=== PATIENT | male | born 1960 | race African-American/Black ===

== ENCOUNTER 2019-05-18 04:43 | Emergency (ER) | payer SELFPAY ==
[~2019-05-18] VITALS: Ht 188 cm; Wt 90.7 kg
--- NOTE | 2019-05-18 04:45 | NUR ---
TO BED 2 BIB PARAMEDICS C/O ABDOMINAL PAIN WITH N/V SINCE MIDNIGHT. PT AAOX4 NO ACUTE DISTRESS NOTED, RESP EVEN AND UNLABORED. PLACE PT ON CONTINUOUS POX, O2@2L/NC. PENDING ER MD [place].
--- NOTE | 2019-05-18 04:47 | NUR ---
ER MD AT BEDSIDE TO EVAL PT WITH ORDERS RECEIVED.
[2019-05-18] MEDS ORDERED: ONDANSETRON HCL/PF 4 MG/2 ML VIAL ONE (04:58)
[2019-05-18] MEDS ORDERED: MORPHINE SULFATE INJ 4 MG/ML DISP.SYRIN ONE (04:58)
[2019-05-18] MEDS ORDERED: ONDANSETRON HCL/PF 4 MG/2 ML VIAL IVP ONE (05:00)
[2019-05-18] MEDS ORDERED: MORPHINE SULFATE INJ 2 MG/ML DISP.SYRIN IV ONE (05:00)
[2019-05-18] MEDS ORDERED: IV NS 0.9% 1,000 ML BAG IV ONE ×2 (05:00→06:00)
--- NOTE | 2019-05-18 05:00 | NUR ---
ADDENDUM: Intravenous End Time Documentation: Normal saline 1 liter (IV-WO) : start time:0500 am ; end time:0600 am: IV site: [facility] PIV # 18 Port # 1
--- NOTE | 2019-05-18 05:03 | NUR ---
PT MEDICATED ORDERED.
[2019-05-18 05:11] LABS: BASOPHILS # (AUTO) 0.1 /CMM (0.0-0.2); BASOPHILS % (AUTO) 0.4 % (0.0-2.0); EOSINOPHILS % (AUTO) 0.1 % (0.0-6.0); HEMATOCRIT 42 % (39-51); HEMOGLOBIN 14.6 g/dL (13.5-17.5); LYMPHOCYTES # (AUTO) 2.6 /CMM (0.8-4.8); LYMPHOCYTES % (AUTO) 19.8 % (20.0-44.0); MEAN CORPUSCULAR HGB CONC 34 g/dl (31.0-36.0); MEAN CORPUSCULAR VOLUME 92 fL (80-96); MONOCYTES # (AUTO) 0.6 /CMM (0.1-1.30); MONOCYTES % (AUTO) 4.3 % (2.0-12.0); NEUTROPHILS # (AUTO) 9.8 /CMM (1.8-8.9); NEUTROPHILS % (AUTO) 75.4 % (43.0-81.0); PLATELET COUNT (AUTO) 133 /CMM (150-450); RED BLOOD CELL COUNT(AUTO) 4.63 MIL/uL (4.5-6.0)
[2019-05-18 05:23] LABS: CALCIUM, SERUM 9.6 mg/dL (8.5-10.1); CREATININE 1.6 mg/dL (0.6-1.3); POTASSIUM 3.7 mmol/L (3.5-5.1)
--- NOTE | 2019-05-18 06:20 | NUR ---
MARVIN (SISTER) [phone], FRANCOIS SISTER) [phone]
[2019-05-18] MEDS ORDERED: IV NS 0.9% 250 ML IV ONE (06:23)
[2019-05-18] MEDS ORDERED: CT SWABBABLE VALVE TRANS SET 1 EA INFUS.SET MC ONE (06:23)
[2019-05-18] MEDS ORDERED: IOHEXOL-300 100 ML VIAL IV ONE (06:23)
--- NOTE | 2019-05-18 06:34 | NUR ---
Megan fuentes in [facility] - 05/18/19 at 0643 by RAEANN PT TRANSPORTED TO RADIOLOGY FOR CT ABD/PELVIS WITH IV CONTRAST.
--- NOTE | 2019-05-18 06:34 | NUR ---
PT TRANSPORTED TO RADIOLOGY FOR CT ABD/PELVIS
--- NOTE | 2019-05-18 06:44 | NUR ---
PT BACK FROM RADIOLOGY. PENDING CT RESULT.
[2019-05-18] MEDS ORDERED: KETOROLAC TROMETHAMINE INJ 30 MG/ML VIAL ONE (07:18)
[2019-05-18] MEDS ORDERED: TAMSULOSIN 0.4 MG CAP.SR.24H ONE (07:19)
--- NOTE | 2019-05-18 07:21 | NUR ---
PT STILL C/O ABDOMINAL PAIN 05/18. ER MD AWARE WITH ORDERS RECEIVED. PT MEDICATED ORDERED.
--- NOTE | 2019-05-18 07:22 | NUR ---
REPORT GIVEN TO AM SHIFT MARVIN GERMAN.
[2019-05-18] MEDS ORDERED: TAMSULOSIN 0.4 MG CAP.SR.24H PO ONE (07:30)
[2019-05-18] MEDS ORDERED: KETOROLAC TROMETHAMINE INJ 30 MG/ML VIAL IV ONE (07:30)
--- NOTE | 2019-05-18 07:51 | NUR ---
IV removed. Catheter intact and site benign. Pressure and 4x4 applied to site. No bleeding noted.Patient discharged to home in stable condition. Written and verbal after care instructions given. Patient verbalizes understanding of instruction.
[2019-05-18 07:52] VITALS: BP 154/85
== END 2019-05-18 07:52 | disposition home or self-care (01) ==
LOC: ER 04:46
DX: R10.31 Right lower quadrant pain (principal); R11.2 Nausea with vomiting, unspecified; Z60.2 Problems related to living alone
CPT/HCPCS: 36415; 74176; 80048; 85025; 96361; 96374; 96375; 99284; J1885; J2270; J2405; J7030 ×2; J7050; Q9967